=== PATIENT | female | born 1955 | race American Indian/Alaskan Native ===

== ENCOUNTER 2016-08-31 11:36 | Emergency (ER) | payer BC, OTHER ==
[2016-08-31] MEDS ORDERED: Albuterol/Ipratropium 3.0-0.5 MG/3 ML Neb Soln NEB ONE (11:57)
[2016-08-31] MEDS ORDERED: Sodium Chloride 0.9% 2.5 ML Syringe FLUSH PRN (11:57)
[2016-08-31] MEDS ORDERED: Ondansetron 4 MG/2 ML SDV IVPUSH ONE (11:57)
[2016-08-31] MEDS ORDERED: Sodium Chloride 0.9% 1,000 ML IV ONE (11:57)
[2016-08-31] MEDS ORDERED: Sodium Chloride 0.9% 10 ML Syringe FLUSH PRN (11:57)
--- NOTE | 2016-08-31 12:01 | EDM.PDOC ---
ED HPI GENERAL MEDICAL PROBLEM - General Chief Complaint: General Stated Complaint: SICK(BODYACHE) Time Seen by Provider: 08/31/16 11:50 - History of Present Illness INITIAL COMMENTS - FREE TEXT/NARRATIVE: HISTORY AND PHYSICAL: History of present illness: The patient is a 61-year-old female who presents with a two-day history of cough occasionally productive of phlegm sinus congestion and drainage bodyaches and vomiting; she started having some diarrhea today. Patient denies any abdominal pain but says that she has been intermittently nauseated and is afraid to eat or drink. She states she has had episodic vomiting and it is not all posttussive. The diarrhea is just loose and it has not been multiple times. Patient didn't get her flu shot this year and states that her nasal congestion is more clear to cloudy in color. As no headache or neck pain no flank pain and no urinary changes. She is a one pack-a-day smoker for many years but denies any pulmonary disease. She has a history of A. fib and is on diltiazem and does not feel palpitations or chest pain and she is not on anticoagulation. Review of systems: As per history of present illness and below otherwise all systems reviewed and negative. Past medical history: As per history of present illness and as reviewed below otherwise noncontributory. Surgical history: As per history of present illness and as reviewed below otherwise noncontributory. Social history: No reported history of drug or alcohol abuse. Family history: As per history of present illness and as reviewed below otherwise noncontributory. Physical exam: General: Well-developed well-nourished female who is a harsh cough in the room and has a nasal quality to voice. She is not breathless on examination and is nontoxic. Vital signs are noted by me in triage on my evaluation she is [id number]% on room-air HEENT: Atraumatic, normocephalic, pupils reactive, negative for conjunctival pallor or scleral icterus, mucous membranes moist, throat clear, neck supple, nontender, trachea midline. Mild sinus tenderness on palpation Lungs: Clear to auscultation with diminished breath sounds in the bases, breath sounds equal bilaterally, chest nontender. Heart: S1S2, regular, negative for clicks, rubs, or JVD. Abdomen: Soft, nondistended, nontender. Negative for masses or hepatosplenomegaly. Negative for costovertebral tenderness. Pelvis: Stable nontender. Genitourinary: Deferred. Rectal: Deferred. Extremities: Atraumatic, negative for cords or calf pain. Neurovascular unremarkable. Neuro: Awake, alert, oriented. Cranial nerves II through XII unremarkable. Cerebellum unremarkable. Motor and sensory unremarkable throughout. Exam nonfocal. Diagnostics: CBC CMP influenza swab chest x-ray Therapeutics: IV fluids Zofran DuoNeb The patient feels improved and I will prescribe Tamiflu. I advised her about her blood glucose and need to follow that more closely. She is a non-insulin- dependent diabetic. Also advise follow up will give her referrals for such. Impression: Influenza B Definitive disposition and diagnosis as appropriate pending reevaluation and review of above. body aches Pain Score (Numeric/FACES): 7 - Related Data Allergies Allergy/AdvReac Type Severity Reaction Status Date / Time No Known Allergies Allergy Verified 08/31/16 11:51 Home Meds: Home Meds Aspirin [Halfprin] 81 mg PO ONETIME 08/31/16 [History] Diltiazem [Cardizem CD] 120 mg PO DAILY 08/31/16 [History] Glimepiride [Amaryl] 2 mg PO DAILY 08/31/16 [History] Omeprazole 20 mg PO DAILY 08/31/16 [History] buPROPion [Wellbutrin XL] 150 mg PO DAILY 08/31/16 [History] ED ROS GENERAL - Review of Systems Review Of Systems: ROS reveals no pertinent complaints other than HPI. ED EXAM, GENERAL - Physical Exam Exam: See Below (See dictation) Course - Vital Signs Last Recorded V/S: Last Vital Signs Temp 36.8 C 08/31/16 11:54 Pulse 89 08/31/16 13:29 Resp 16 08/31/16 13:29 BP 122/70 08/31/16 13:29 Pulse Ox 95 08/31/16 13:29 - Orders/Labs/Meds Orders: Active Orders 24 hr Category Date Time Status RT Aerosol Therapy [RC] ASDIRECTED Care 08/31/16 11:57 Active Chest 2V [CR] Stat Exams 08/31/16 11:57 Taken Sodium Chloride 0.9% [Saline Flush] Med 08/31/16 11:57 Active 10 ml FLUSH ASDIRECTED PRN Sodium Chloride 0.9% [Saline Flush] Med 08/31/16 11:57 Active 2.5 ml FLUSH ASDIRECTED PRN Saline Lock Insert [OM.PC] Stat Oth 08/31/16 11:57 Ordered Medication Orders Sodium Chloride (Saline Flush) 10 ml FLUSH ASDIRECTED PRN PRN Reason: Keep Vein Open Last Admin: 08/31/16 12:48 Dose: 10 ml Sodium Chloride (Saline Flush) 2.5 ml FLUSH ASDIRECTED PRN PRN Reason: Keep Vein Open Last Admin: 08/31/16 12:48 Dose: 2.5 ml Labs: Laboratory Tests 08/31/16 08/31/16 Range/Units 12:09 12:09 WBC 6.07 (4.0-11.0) K/uL RBC 5.05 (4.30-5.90) M/uL Hgb 15.0 (12.0-16.0) g/dL Hct 44.9 (36.0-46.0) % MCV 88.9 (80.0-98.0) fL MCH 29.7 (27.0-32.0) pg MCHC 33.4 (31.0-37.0) g/dL RDW Std Deviation 41.2 (28.0-62.0) fl RDW Coeff of Flakita 13 (11.0-15.0) % Plt Count 147 L (150-400) K/uL MPV 10.50 (7.40-12.00) fL Neut % (Auto) 64.4 (48.0-80.0) % Lymph % (Auto) 25.0 (16.0-40.0) % Becker % (Auto) 10.2 (0.0-15.0) % Eos % (Auto) 0.2 (0.0-7.0) % Baso % (Auto) 0.2 (0.0-1.5) % Neut # 3.9 (1.4-5.7) K/uL Lymph # 1.5 (0.6-2.4) K/uL Becker # 0.6 (0.0-0.8) K/uL Eos # 0.0 (0.0-0.7) K/uL Baso # 0.0 (0.0-0.1) K/uL Sodium 132 L (136-146) mmol/L Potassium 4.0 (3.5-5.1) mmol/L Chloride 99 (98-110) mmol/L Carbon Dioxide 24 (21-31) mmol/L BUN 8 (6.0-23.0) mg/dL Creatinine 0.8 (0.6-1.5) mg/dL Est Cr Clr Drug Dosing 67.29 mL/min Estimated GFR (MDRD) > 60.0 ml/min Glucose 279 H (60-110) mg/dL Calcium 8.7 L (8.8-10.8) mg/dL Total Bilirubin 0.4 (0.1-1.5) mg/dL AST 27 (5-40) IU/L ALT 27 (8-54) IU/L Alkaline Phosphatase 108 (40-150) Total Protein 7.4 (6.0-8.0) g/dL Albumin 3.9 (3.4-4.8) g/dL Globulin 3.5 (2.0-3.5) g/dL Albumin/Globulin Ratio 1.1 L (1.3-2.8) Meds: Medications Generic Name Dose Route Start Last Admin Trade Name Nita PRN Reason Stop Dose Admin Sodium Chloride 10 ml 08/31/16 11:57 08/31/16 12:48 Saline Flush FLUSH 10 ml ASDIRECTED PRN Administration Keep Vein Open Sodium Chloride 2.5 ml 08/31/16 11:57 08/31/16 12:48 Saline Flush FLUSH 2.5 ml ASDIRECTED PRN Administration Keep Vein Open Discontinued Medications Generic Name Dose Route Start Last Admin Trade Name Frelisa PRN Reason Stop Dose Admin Albuterol/Ipratropium 3 ml 08/31/16 11:57 08/31/16 12:10 Duoneb 3.0-0.5 Mg/3 Ml NEB 08/31/16 11:58 3 ml ONETIME ONE Administration Sodium Chloride 1,000 mls @ 999 mls/hr 08/31/16 11:57 08/31/16 12:30 Normal Saline IV 08/31/16 12:57 999 mls/hr STAT ONE Administration Ondansetron HCl 4 mg 08/31/16 11:57 08/31/16 13:03 Zofran IVPUSH 08/31/16 11:58 4 mg ONETIME ONE Administration Departure - Departure Time of Disposition: 14:25 Disposition: Home, Self-Care 01 Condition: good Clinical Impression: Influenza B Forms: ED Department Discharge Additional Instructions: The following information is given to patients seen in the emergency department who are being discharged to home. This information is to outline your options for follow-up care. We provide all patients seen in our emergency department with a follow-up referral. The need for follow-up, as well as the timing and circumstances, are variable depending upon the specifics of your emergency department visit. If you don't have a primary care physician on staff, we will provide you with a referral. We always advise you to contact your personal physician following an emergency department visit to inform them of the circumstance of the visit and for follow-up with them and/or the need for any referrals to a consulting specialist. The emergency department will also refer you to a specialist when appropriate. This referral assures that you have the opportunity for followup care with a specialist. All of these measure are taken in an effort to provide you with optimal care, which includes your followup. Under all circumstances we always encourage you to contact your private physician who remains a resource for coordinating your care. When calling for followup care, please make the office aware that this follow-up is from your recent emergency room visit. If for any reason you are refused follow-up, please contact the [facility] emergency department at and ask to speak to the emergency department charge nurse. [facility] Primary care- Internal Medicine and Family [address] [address] Take Tamiflu as directed and and push hydration. Use [id number] meds as needed and as we discussed. Please call and followup in the clinic and return to the ER as needed and as discussed - My Orders Last 24 Hours: My Active Orders 08/31/16 11:57 RT Aerosol Therapy [RC] ASDIRECTED Chest 2V [CR] Stat Sodium Chloride 0.9% [Saline Flush] 10 ml FLUSH ASDIRECTED PRN Sodium Chloride 0.9% [Saline Flush] 2.5 ml FLUSH ASDIRECTED PRN Saline Lock Insert [OM.PC] Stat - Assessment/Plan Last 24 Hours: My Active Orders 08/31/16 11:57 RT Aerosol Therapy [RC] ASDIRECTED Chest 2V [CR] Stat Sodium Chloride 0.9% [Saline Flush] 10 ml FLUSH ASDIRECTED PRN Sodium Chloride 0.9% [Saline Flush] 2.5 ml FLUSH ASDIRECTED PRN Saline Lock Insert [OM.PC] Stat
[2016-08-31 12:39] LABS: CHLORIDE,CL 99 mmol/L (98-110); SODIUM,NA 132 mmol/L (136-146)
[2016-08-31 14:39] VITALS: BP 114/80
--- NOTE | 2016-09-01 17:03 | CR ---
EXAM DATE: 08/31/16 PATIENT'S AGE: 61 Patient: LIDIA ANTHONY Facility: [place], [place] Site . Site : [id number] Study: XRay Chest [id number] 12:52:45 PM Ordering Physician: Nikita Waggoner Final Report: HISTORY: Cough. TECHNIQUE: Two views of the chest. COMPARISON: 07/25/2011. FINDINGS: Cardiac size and pulmonary vasculature within normal limits. There is no acute lung infiltrate or pulmonary edema. No pneumothorax or pleural effusion. Mild degenerative changes of the spine. IMPRESSION: No acute disease. Dictated by Timoteo Mae MD @ 08/31/2016 1:20:22 PM Dictated by: Timoteo Mae MD @ 08/31/2016 13:20:28 (Electronic Signature) Report Signed by Proxy and Original Signed Document filed in the Medical Record. [email or web address]
== END 2016-08-31 14:38 | disposition home or self-care (01) ==
LOC: MW.ED 11:36
DX: J10.1 Influenza due to other identified influenza virus with other respiratory manifestations (principal); Z79.899 Other long term (current) drug therapy
CPT/HCPCS: 36415; 71020; 80053; 85025; 87804; 94664; 96361; 96374; 99284; J2405; J7040

== ENCOUNTER 2016-09-06 17:21 | Emergency (ER) | payer OTHER ==
--- NOTE | 2016-09-06 17:29 | EDM.PDOC ---
ED HISTORY OF PRESENT ILLNESS - General Chief Complaint: Respiratory Problem Stated Complaint: SINUS INFECTION/COUGH Time Seen by Provider: 09/06/16 17:29 Source of Information: Reports: Patient - History of Present Illness INITIAL COMMENTS - FREE TEXT/NARRATIVE: HISTORY AND PHYSICAL: History of present illness: [] Patient with history of influenza presents with sinus pain and pressure right greater than left for several days, flu symptoms have improved she does have some residual cough no fever nausea vomiting chills sweats Review of systems: As per history of present illness and below otherwise all systems reviewed and negative. Past medical history: As per history of present illness and as reviewed below otherwise noncontributory. Surgical history: As per history of present illness and as reviewed below otherwise noncontributory. Social history: No reported history of drug or alcohol abuse. Family history: As per history of present illness and as reviewed below otherwise noncontributory. Physical exam: HEENT: Atraumatic, normocephalic, pupils reactive, negative for conjunctival pallor or scleral icterus, mucous membranes moist, throat clear, neck supple, nontender, trachea midline. Sinus pain) left maxillary sinus Lungs: Clear to auscultation, breath sounds equal bilaterally, chest nontender. Heart: S1S2, regular, negative for clicks, rubs, or JVD. Abdomen: Soft, nondistended, nontender. Negative for masses or hepatosplenomegaly. Negative for costovertebral tenderness. Pelvis: Stable nontender. Genitourinary: Deferred. Rectal: Deferred. Extremities: Atraumatic, negative for cords or calf pain. Neurovascular unremarkable. Neuro: Awake, alert, oriented. Cranial nerves II through XII unremarkable. Cerebellum unremarkable. Motor and sensory unremarkable throughout. Exam nonfocal. Diagnostics: [] S. x-ray on file within the last week Therapeutics: [] Amoxicillin 500 by mouth twice a day #20 no refill HFA Impression: [] Acute sinusitis Recent influenza Definitive disposition and diagnosis as appropriate pending reevaluation and review of above. - Related Data Allergies/ADRs: Allergies Allergy/AdvReac Type Severity Reaction Status Date / Time No Known Allergies Allergy Verified 08/31/16 11:51 Home Meds: Home Meds Aspirin [Halfprin] 81 mg PO ONETIME 08/31/16 [History] Diltiazem [Cardizem CD] 120 mg PO DAILY 08/31/16 [History] Glimepiride [Amaryl] 2 mg PO DAILY 08/31/16 [History] Omeprazole 20 mg PO DAILY 08/31/16 [History] buPROPion [Wellbutrin XL] 150 mg PO DAILY 08/31/16 [History] Past Medical History Cardiovascular History: Reports: Afib Endocrine/Metabolic History: Reports: Diabetes, type II - Past Surgical History GI Surgical History: Reports: Cholecystectomy Musculoskeletal Surgical History: Reports: Shoulder surgery Social & Family History - Family History Family Medical History: Noncontributory - Tobacco Use Smoking Status *Q: Current Every Day Smoker Years of Tobacco use: 40 Packs/Tins Daily: 1 - Recreational Drug Use Recreational Drug Use: No ED ROS GENERAL - Review of Systems Review Of Systems: ROS reveals no pertinent complaints other than HPI. ED EXAM, GENERAL - Physical Exam Exam: See Below Course - Vital Signs Last Recorded V/S: Last Vital Signs Temp 36.1 C 09/06/16 17:31 Pulse 78 09/06/16 17:31 Resp 16 09/06/16 17:31 BP 110/70 09/06/16 17:31 Pulse Ox 92 L 09/06/16 17:31 Departure - Departure Time of Disposition: 17:45 Disposition: Home, Self-Care 01 Condition: good Clinical Impression: Acute sinusitis Referrals: PCP,None [Primary Care Provider] - Forms: ED Department Discharge Additional Instructions: The following information is given to patients seen in the emergency department who are being discharged to home. This information is to outline your options for follow-up care. We provide all patients seen in our emergency department with a follow-up referral. The need for follow-up, as well as the timing and circumstances, are variable depending upon the specifics of your emergency department visit. If you don't have a primary care physician on staff, we will provide you with a referral. We always advise you to contact your personal physician following an emergency department visit to inform them of the circumstance of the visit and for follow-up with them and/or the need for any referrals to a consulting specialist. The emergency department will also refer you to a specialist when appropriate. This referral assures that you have the opportunity for follow-up care with a specialist. All of these measure are taken in an effort to provide you with optimal care, which includes your follow-up. Under all circumstances we always encourage you to contact your private physician who remains a resource for coordinating your care. When calling for follow-up care, please make the office aware that this follow-up is from your recent emergency room visit. If for any reason you are refused follow-up, please contact the [facility] emergency department at and asked to speak to the emergency department charge nurse.
== END 2016-09-06 18:11 | disposition home or self-care (01) ==
LOC: MW.ED 17:21
CPT/HCPCS: 99283

== ENCOUNTER 2023-12-04 19:02 | Emergency (ER) | payer MEDICARE, OTHER ==
[2023-12-04] MEDS: Ketorolac 30 MG/ML SDV IM ONE (20:27)
[2023-12-04] MEDS: Lidocaine 4% 1 each Patch TOP PRN (20:28)
[2023-12-04 20:50] VITALS: BP 105/60; PULSE 72
== END 2023-12-04 20:50 | disposition home or self-care (01) ==
LOC: MW.ED 19:02
DX: S43.91XA Sprain of unspecified parts of right shoulder girdle, initial encounter (principal); E11.9 Type 2 diabetes mellitus without complications; Z75.8 Other problems related to medical facilities and other health care; Z79.899 Other long term (current) drug therapy; Z90.49 Acquired absence of other specified parts of digestive tract; X58.XXXA Exposure to other specified factors, initial encounter
CPT/HCPCS: 73030; 96372; 99283; A9270; J1885